=== PATIENT | female | born 1975 | race Two or more races ===

== ENCOUNTER 2019-07-06 08:00 | Day surgery (SDC) | payer OTHER ==
[~2019-07-06] VITALS: Ht 149.9 cm; Wt 62.1 kg
== END 2019-07-06 13:00 | disposition home or self-care (01) ==
LOC: CIR.AMB 08:00 → SEC-K 08:09 → ER 08:09 → O/R 08:09 → EDSTATUS 10:00 → CIR.AMB 13:00 → SEC-K 14:07 → O/R 14:07
DX: N84.0 Polyp of corpus uteri (principal)

== ENCOUNTER 2019-12-10 10:07 | Outpatient (CLI) | payer OTHER | END 2019-12-10 10:18 | disposition home or self-care (01) | LOC: EKG 10:07 | DX: Z01.810 Encounter for preprocedural cardiovascular examination (principal) ==

== ENCOUNTER 2019-12-12 11:00 | Inpatient (IN) | payer OTHER ==
[~2019-12-12] VITALS: Ht 149.9 cm; Wt 62.6 kg
== END 2019-12-16 10:24 | disposition home or self-care (01) | DRG 743 ==
LOC: O/R 12-14 06:48 → OB/GYN 12-14 11:43
PROVIDERS: ADMIT Specialist
PROC: 0UT90ZZ Resection of Uterus, Open Approach (ICD-10-PCS; principal; 2019-12-14 07:00)
DX: D25.1 Intramural leiomyoma of uterus (principal); N72 Inflammatory disease of cervix uteri; N93.8 Other specified abnormal uterine and vaginal bleeding